=== PATIENT | female | born 2005 | race African-American/Black ===

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

== ENCOUNTER 2024-06-02 13:53 | Emergency (ER) | payer MEDICAID ==
[~2024-06-02] VITALS: Ht 165.1 cm; Wt 59.0 kg
== END 2024-06-02 17:39 | disposition home or self-care (01) ==
LOC: ED 13:53
DX: S90.31XA Contusion of right foot, initial encounter (principal); W22.8XXA Striking against or struck by other objects, initial encounter; Y93.02 Activity, running; Y92.89 Other specified places as the place of occurrence of the external cause; Y99.0 Civilian activity done for income or pay

== ENCOUNTER 2024-09-27 16:54 | Emergency (ER) | payer MEDICAID ==
[~2024-09-27] VITALS: Ht 165.1 cm; Wt 56.7 kg
== END 2024-09-27 17:44 | disposition home or self-care (01) ==
LOC: ED 16:54
DX: Z32.01 Encounter for pregnancy test, result positive (principal)